=== PATIENT | male | born 1940 | race Caucasian/White ===

== ENCOUNTER 2024-03-11 16:01 | Inpatient (IN) | payer OTHER ==
[~2024-03-11] VITALS: Ht 170.2 cm; Wt 65.5 kg
[2024-03-11 17:16] LABS: BASOPHILS ABSOLUTE AUTO 0.07 K/mm3 (0.00-0.23); BASOPHILS PERCENT AUTO 1 % (0-2); EOSINOPHILS ABSOLUTE AUTO 0.27 K/mm3 (0.00-0.68); EOSINOPHILS PERCENT AUTO 3 % (0-6); Hematocrit 33.4 % (37.0-53.0); Hemoglobin 11.6 g/dL (13.5-17.5); IMMATURE GRAN ABSOLUTE AUTO 0.02 K/mm3 (0.00-0.10); IMMATURE GRAN PERCENT AUTO 0 % (0-1); LYMPHOCYTES ABSOLUTE AUTO 1.63 K/mm3 (0.84-5.20); LYMPHOCYTES PERCENT AUTO 20 % (21-46); MONOCYTES PERCENT AUTO 12 % (4-13); Mean Corpuscular HGB 31.1 pg (26.0-34.0); Mean Corpuscular HGB Conc 34.7 g/dL (31.5-36.5); Mean Corpuscular Volume 90 fL (80-100); Mean Platelet Volume 10.1 fL (9.1-12.4); NEUTROPHILS ABSOLUTE AUTO 5.39 K/mm3 (1.96-9.15); NEUTROPHILS PERCENT AUTO 64 % (41-73); Platelet Count 216 K/mm3 (150-400); RDW Coefficient Variation 13.2 % (11.7-14.2); RDW Standard Deviation 43.6 fL (35.1-46.3); Red Blood Cell Count 3.73 M/mm3 (4.30-5.90); White Blood Cell Count 8.38 K/mm3 (4.00-11.30)
[2024-03-11 17:31] LABS: International Normalized Ratio 0.96; Prothrombin Time Results 10.3 Sec (9.7-11.5)
[2024-03-11 18:27] LABS: Free Thyroxine 0.63 ng/dL (0.70-1.60); Thyroid Stimulating Hormone 11.7 uIU/mL (0.360-4.800)
[2024-03-11 18:28] LABS: Bun/Creatinine Ratio 17.5 (12.0-20.0); Calcium, Blood 8.2 mg/dL (8.5-10.1); Creatinine, Blood 0.74 mg/dL (0.60-1.20); Potassium, Blood 4.6 mmol/L (3.5-5.5)
[2024-03-11] MEDS ORDERED: FLU VACC TS2024-25(6MOS UP)/PF 45 MCG/0.5 ML SYRINGE IM SCH (20:15)
[2024-03-11] MEDS ORDERED: Ipratropium/Albuterol SulF 2.5-0.5MG/3 ML Amp INH SCH (20:15)
[2024-03-11] MEDS ORDERED: FentaNYL Citrate 50 MCG/ML 2 ML Injection IV PRN (20:20)
[2024-03-11] MEDS ORDERED: Albuterol 2.5 MG/3 ML VIAL INH PRN (20:20)
[2024-03-11] MEDS ORDERED: NS 1,000 ML IV SCH ×2 (20:20→20:25)
[2024-03-11] MEDS ORDERED: Ondansetron HCl 2 MG / ML 2ML Vial IV PRN (20:20)
[2024-03-11] MEDS ORDERED: Acetaminophen 325 MG TABLET PO PRN (20:20)
[2024-03-11] MEDS ORDERED: OxyCODONE HCL 5 MG TAB PO PRN (20:20)
[2024-03-11 20:49] LABS: Source, Urine Clean Catch
[2024-03-11 20:52] LABS: Bilirubin, Urine Neg (Neg); Blood, Urine 1+ (Neg); Glucose Qualitative, Urine Neg (Neg); Ketones, Urine Neg (Neg); Leukocyte Esterase, Urine 3+ (Neg); Nitrite, Urine Pos (Neg); Protein, Urine 2+ (Neg); Urobilinogen, Urine NORM (Normal)
[2024-03-11] MEDS ORDERED: NS 1,000 ML IV ONE (20:58)
[2024-03-11] MEDS ORDERED: Azithromycin 500 MG in NS 250 ML IV SCH (21:00)
[2024-03-11] MEDS ORDERED: FentaNYL Citrate 50 MCG/ML 2 ML Injection IV ONE (21:00)
[2024-03-11] MEDS ORDERED: NS 500 ML IV ONE (21:00)
[2024-03-11 21:06] LABS: Appearance, Urine Hazy (Clear); Color, Urine Pale Yellow (P-Yellow)
[2024-03-11 21:07] LABS: Bacteria Many /hpf; Mucus Light (0-Heavy); Squamous Epithelial Cells Rare /hpf (Few); White Blood Cells, Urine 25-50 /hpf (0-5)
[2024-03-11 21:49] VITALS: BP 127/74
[2024-03-11] MEDS ORDERED: FOLI1 PO (21:51)
[2024-03-11] MEDS ORDERED: POTASSIUM GLU2.5 MEQ (21:51)
[2024-03-11] MEDS ORDERED: NAPR500 (21:52)
[2024-03-11] MEDS ORDERED: ERGO400 (21:52)
[2024-03-11] MEDS ORDERED: Lisinopril2.5 MG PO (21:53)
[2024-03-11] MEDS ORDERED: OMEP20ER PO (21:53)
[2024-03-11] MEDS ORDERED: PHENY100ER PO (21:54)
[2024-03-11] MEDS ORDERED: FINA5 PO (21:54)
[2024-03-11] MEDS ORDERED: LEVSOD150 PO (21:55)
--- NOTE | 2024-03-11 22:00 | NUR ---
ARRIVAL TO SURGICAL UNIT ROOM 215 FROM ER. PT ARRIVED VIA GURNEY TO ROOM AT 2138. PT TRANSFERED VIA SLIDER SHEET. PT REPORTED PAIN WITH MOVEMENT. PT A/O X4. ORIENTED TO ROOM AND CALL LIGHT. PT REPORTED WALLET WAS SENT HOME WITH EX DOWN IN ER. CALL LIGHT IN REACH.
[2024-03-11] MEDS ORDERED: CefTRIAXone Sodium 1,000 MG in NS 100 ML IV SCH (22:30)
[2024-03-11] MEDS ORDERED: NS 250 ML IV PRN (22:50)
[2024-03-12 04:26] VITALS: BP 122/74
[2024-03-12 04:38] LABS: Hematocrit 32.9 % (37.0-53.0); Hemoglobin 11.2 g/dL (13.5-17.5); Mean Corpuscular HGB 30.7 pg (26.0-34.0); Mean Corpuscular Volume 90 fL (80-100); Mean Platelet Volume 10.5 fL (9.1-12.4); Platelet Count 222 K/mm3 (150-400); RDW Coefficient Variation 13.2 % (11.7-14.2); RDW Standard Deviation 43.9 fL (35.1-46.3); Red Blood Cell Count 3.65 M/mm3 (4.30-5.90)
[2024-03-12 04:54] LABS: Bun/Creatinine Ratio 18.8 (12.0-20.0); Calcium, Blood 8.2 mg/dL (8.5-10.1); Creatinine, Blood 0.69 mg/dL (0.60-1.20); International Normalized Ratio 0.96; Magnesium, Blood 1.9 mg/dL (1.6-2.4); Potassium, Blood 4.5 mmol/L (3.5-5.5); Prothrombin Time Results 10.3 Sec (9.7-11.5)
--- NOTE | 2024-03-12 05:55 | NUR ---
SHIFT SUMMARY NOC. PT ADMIT FOR LEFT FEMUR FX. PT A/O X4. PT REPORTS PAIN INCREASES WITH MOVEMENT. PT MEDICATED FOR PAIN WITH ORAL OXY. PT HAS SUPRAPUBIC CATH, DECLINED TO HAVE CHANGED, SAMPLE SENT BY ER AND NEW BAG PLACED. PT VOIDING URINE VIA SECURED CATH. PT NPO SINCE 0000, ASIDE FOR SIP OF WATER FOR OXY AND DILANTIN. PT REFUSED SCDS, EDUCATION PROVIDED. PT ON 2L VIA N/C. BED IN LOWEST POSITION, CALL LIGHT IN REACH.
[2024-03-12] MEDS ORDERED: Omeprazole 20 MG CapCR PO SCH (06:00)
[2024-03-12] MEDS ORDERED: Levothyroxine Sodium 0.125 MG Tab PO SCH (06:00)
[2024-03-12 07:00] VITALS: BP 125/71
[2024-03-12] MEDS ORDERED: Polyethylene Glycol 3350 17 gm PO PRN (08:05)
[2024-03-12] MEDS ORDERED: Lactobacil 2-S.Thermo-Bifido 1 1 Cap PO SCH (09:00)
[2024-03-12] MEDS ORDERED: Lisinopril 5 MG Tab PO SCH (09:00)
[2024-03-12] MEDS ORDERED: Cholecalciferol 1000 Unit Tablet (=25MCG) PO SCH (09:00)
[2024-03-12] MEDS ORDERED: Finasteride 5 MG Tab PO SCH (09:00)
[2024-03-12 14:45] VITALS: BP 87/50
[2024-03-12 15:22] VITALS: BP 99/56
--- NOTE | 2024-03-12 16:26 | NUR ---
SHIFT SUMMARY PT WAS ADMITTED EARLIER THIS MORNING AFTER BEING AN ED HOLD OVER NIGHT. PT INITIALLY KEPT NPO WHILE AWAITING MRI AND XRAY RESULTS THIS AFTERNOON. PER ORTHO PROVIDER, PT WILL NEED SURGERY TOMORROW FOR L HIP REPAIR. PT NPO AFTER MID-NIGHT. MEDICATED FOR PAIN. FAMILY/FRIENDS AT BEDSIDE VISITING WITH PT. NO ISSUES NOTED.
--- NOTE | 2024-03-12 16:34 | NUR ---
SHIFT SUMMARY PT NPO THIS MORNING UNTIL MRI/XRAY RESULTS BACK. PT ABLE TO EAT LUNCH AND WILL BE NPO AFTER MID-NIGHT. PT MEDICATED FOR PAIN. MOVES IN BED INDEPENDENTLY. MULTIPLE VISITORS DURING SHIFT AND PT REMAINS IN GOOD SPIRITS. CARE COORDINATION MAKING PLANS FOR DISCHARGE. PLAN TO HAVE SURGERY IN MORNING TOMORROW. NO ISSUES NOTED. SIDE RAILS UP AND CALL LIGHT IN REACH.
[2024-03-12] MEDS ORDERED: Tranexamic Acid 100 ML IV SCH (19:50)
[2024-03-12] MEDS ORDERED: CeFAZolin Sodium 2,000 MG in NS 100 ML IV SCH (19:50)
[2024-03-12 20:20] VITALS: BP 96/47
[2024-03-12] MEDS ORDERED: MethylPREDNISolone Sod Succ 125 MG Vial IV SCH ×2 (21:00)
[2024-03-12] MEDS ORDERED: Docusate Sodium/Senna 1 Tab PO SCH (21:00)
[2024-03-12 23:40] VITALS: BP 108/58
[2024-03-13] VITALS (25 sets, daily range): BP systolic 84–128; BP diastolic 52–90
[2024-03-13 05:11] LABS: Hematocrit 31.4 % (37.0-53.0); Hemoglobin 10.7 g/dL (13.5-17.5); Mean Corpuscular HGB Conc 34.1 g/dL (31.5-36.5); Mean Corpuscular Volume 91 fL (80-100); Mean Platelet Volume 10.5 fL (9.1-12.4); Platelet Count 230 K/mm3 (150-400); RDW Coefficient Variation 13.4 % (11.7-14.2); Red Blood Cell Count 3.45 M/mm3 (4.30-5.90); White Blood Cell Count 9.46 K/mm3 (4.00-11.30)
[2024-03-13 05:30] LABS: Albumin, Blood 2.9 g/dL (3.4-5.0); Anion Gap 10 mmol/L (3-11); Blood Urea Nitrogen 16 mg/dL (8-24); Bun/Creatinine Ratio 21.1 (12.0-20.0); CO2, Blood 26 mmol/L (21-32); Calcium, Blood 8.1 mg/dL (8.5-10.1); Chloride, Blood 99 mmol/L (98-108); Creatinine, Blood 0.76 mg/dL (0.60-1.20); Glomerular Filtration Rate 89 (60-); Glucose, Blood 116 mg/dL (70-99); Phosphorus, Blood 3.9 mg/dL (2.5-4.9); Potassium, Blood 4.7 mmol/L (3.5-5.5); Sodium, Blood 130 mmol/L (136-145)
--- NOTE | 2024-03-13 07:52 | NUR ---
SHIFT SUMMARY NOC. PT ADMITTED FOR L FEMUR FX POST GLF. PT A/O X4. PT'S PAIN CONTROLLED WITH ORALS. PT NPO SINCE 0000 ASIDE FROM PAIN MEDICATION AND DILANTIN. SUPRAPUBIC CATH PATENT AND DRAINING. PT REFUSING SCDS. PT PULLED IV ACCESS LAST NIGHT, UPDATED DAY SHIFT RN. PT ON N/C AND MAINTAINING SATS. BEIN LOWEST POSITION CALL LIGHT IN REACH.
--- NOTE | 2024-03-13 10:36 | NUR ---
PT TAKEN TO OR AT THIS TIME.
[2024-03-13] MEDS ORDERED: Lactated Ringer's 1,000 ML IV SCH (10:45)
[2024-03-13] MEDS ORDERED: Lidocaine HCl 2% 20 ML MDV ONE (10:56)
[2024-03-13] MEDS ORDERED: FentaNYL Citrate 50 MCG/ML 2 ML Injection ONE ×2 (10:56→12:20)
[2024-03-13] MEDS ORDERED: propofoL 20 ML IV ONE (10:56)
[2024-03-13] MEDS ORDERED: Albuterol 2.5 MG/3 ML VIAL ONE (12:58)
--- NOTE | 2024-03-13 15:01 | NUR ---
PT ARRIVED FROM PACU AT APPROXIMATELY 1330. PT ALERT/ORIENTED UPON ARRIVAL. PT RATES PAIN AT 8/10, OXY AND TYLENOL GIVEN FOR PAIN. DRESSING TO L HIP IN PLACE, PER CIGARETTE TIPPERJUANCHO HILARIO NO CHANGE IN APPEARANCE. ICE APPLIED TO L HIP. FAMILY AT BEDSIDE FOR SUPPORT.
--- NOTE | 2024-03-13 18:39 | NUR ---
SHIFT SUMMARY PT IS POD#0 FROM L HIP REPAIR. PAIN HAS BEEN MANAGED WITH TYLENOL AND OXYCODONE. PT HAD SOME POST OP BLEEDING IN PACU BUT RESOLVED PRIOR TO ARRIVAL TO THE UNIT. L THIGH REMAINS SOFT, MINIMAL SWELLING PRESENT. PT GOT OOB AND WORKED WITH PHYSICAL THERAPY. PT'S SBP DROPPED INTO THE 80'S. PT RECOVERED WITH REST AND BP IMPROVED WITHOUT INTERVENTION. PT ON IV FLUIDS. PT TOLERATING PO. PT USES CALL LIGHT APPROPRIATELY.
[2024-03-13] MEDS ORDERED: CeFAZolin Sodium 2,000 MG in NS 100 ML IV SCH (19:00)
[2024-03-13 20:21] LABS: Hemoglobin 10.1 g/dL (13.5-17.5); Mean Corpuscular HGB 30.9 pg (26.0-34.0); Mean Corpuscular HGB Conc 33.7 g/dL (31.5-36.5); Mean Corpuscular Volume 92 fL (80-100); Mean Platelet Volume 10.1 fL (9.1-12.4); Platelet Count 216 K/mm3 (150-400); RDW Coefficient Variation 13.6 % (11.7-14.2); RDW Standard Deviation 45.9 fL (35.1-46.3); Red Blood Cell Count 3.27 M/mm3 (4.30-5.90); White Blood Cell Count 9.73 K/mm3 (4.00-11.30)
[2024-03-13] MEDS ORDERED: Docusate Sodium 100 MG Cap PO SCH (21:00)
[2024-03-14 02:59] VITALS: BP 104/66
--- NOTE | 2024-03-14 05:01 | NUR ---
SHIFT SUMMARY NOC. PT POD 1 FOR LEFT HIP NAILING. PT A/O X4. PT'S PAIN CONTROLLED WITH ORAL OXY AND TYLENOL, MEDICATED THIS SHIFT WITH REPORTED RELIEF. BP'S SOFT AT START OF SHIFT, PT ASSYMPTOMATIC, SIZE WORKER CALLED TO NOTIFY, LABS DRAWN, NO NEW ORDERS POST LABS. SUPRAPUBIC CATH PATENT AND DRAINING TO GRAVITY. PT ON N/C TO MAINTAIN SATS ABOVE 90%. BED IN LOWEST POSITION, CALL LIGHT IN REACH.
[2024-03-14 05:27] LABS: Hematocrit 30.7 % (37.0-53.0); Hemoglobin 10.2 g/dL (13.5-17.5); Mean Corpuscular HGB 30.9 pg (26.0-34.0); Mean Corpuscular HGB Conc 33.2 g/dL (31.5-36.5); Mean Corpuscular Volume 93 fL (80-100); Mean Platelet Volume 10.6 fL (9.1-12.4); Platelet Count 229 K/mm3 (150-400); RDW Coefficient Variation 13.7 % (11.7-14.2); RDW Standard Deviation 46.7 fL (35.1-46.3); White Blood Cell Count 8.85 K/mm3 (4.00-11.30)
[2024-03-14 05:59] LABS: Creatinine, Blood 0.71 mg/dL (0.60-1.20); Potassium, Blood 4.1 mmol/L (3.5-5.5)
[2024-03-14 07:07] VITALS: BP 97/72
[2024-03-14] MEDS ORDERED: PredniSONE 20 MG Tab PO SCH (09:00)
[2024-03-14] MEDS ORDERED: Enoxaparin 40 MG/0.4 ML SYR SC SCH (09:00)
[2024-03-14] MEDS ORDERED: Lisinopril 5 MG Tab PO SCH (09:00)
[2024-03-14 09:31] VITALS: BP 108/63
[2024-03-14] MEDS ORDERED: PRED20 PO (13:41)
[2024-03-14] MEDS ORDERED: ENOX40I SC (13:41)
[2024-03-14] MEDS ORDERED: OXAYDO5 M1 PO (13:43)
--- NOTE | 2024-03-14 15:03 | NUR ---
DISHCARGE SUMMARY PT ALERT AND ORIENTED. SURGEON TO BEDSIDE ASSESSING PT INCISION PRIOR TO DISCHARGE. REVIEWED DISCHARGE INSTRUCTIONS WITH PT AND FAMILY MEMBER. PT DENIED HAVING ANY QUESTIONS OR CONCERNS. IV REMOVED BY HOUSEKEEPING SUPERVISOR. PT LEFT VIA WHEELCHIAR AT 1415.
== END 2024-03-14 14:26 | disposition home or self-care (01) | DRG 481 ==
LOC: ER 16:01 → EDSEX 16:01 → EDBD 16:01 → ERHOLD 20:13 → SURS 20:13
PROVIDERS: Emergency Medicine; Internal Medicine; Nurse Practitioner Acute Care; Orthopaedic Surgery; ADMIT Internal Medicine
PROC: 0QS706Z Reposition Left Upper Femur with Intramedullary Internal Fixation Device, Open Approach (ICD-10-PCS; principal; 2024-03-13 10:30)
DX: S72.112A Displaced fracture of greater trochanter of left femur, initial encounter for closed fracture (principal); E87.1 Hypo-osmolality and hyponatremia; J96.11 Chronic respiratory failure with hypoxia; J44.1 Chronic obstructive pulmonary disease with (acute) exacerbation; I10 Essential (primary) hypertension; E03.9 Hypothyroidism, unspecified; R33.9 Retention of urine, unspecified; Z99.81 Dependence on supplemental oxygen; Z91.040 Latex allergy status; Z87.891 Personal history of nicotine dependence; W18.30XA Fall on same level, unspecified, initial encounter; K21.9 Gastro-esophageal reflux disease without esophagitis
CPT/HCPCS: 36415; 70450; 71045; 72125; 73502; 73721; 80048; 80069; 81001; 82607; 83605; 83735; 83930; 83935; 84295; 84300; 84439; 84443; 85025; 85027; 85610; 85730; 93005; 93010; 94640; 94664; 94760; 94762; 97116; 97161; 97530; 99285-25; A9270; C1713; C1769; J0456; J0690; J0696; J1650; J2704; J2919; J3010; J7030; J7050; J7120; J7512

== ENCOUNTER 2024-08-24 06:25 | Inpatient (IN) | payer OTHER ==
[2024-08-24] VITALS (29 sets, daily range): BP systolic 65–140; BP diastolic 43–119
[~2024-08-24] VITALS: Ht 167.6 cm; Wt 78.3 kg
[~2024-08-24 06:25] MED LIST: ENOX40I SC; ERGO400; FINA5 PO; FOLI1 PO; LEVSOD150 PO; Lisinopril2.5 MG PO; NAPR500; OMEP20ER PO; OXAYDO5 M1 PO; PHENY100ER PO; POTASSIUM GLU2.5 MEQ; PRED20 PO
[2024-08-24] MEDS ORDERED: NS 2,000 ML IV ONE (06:32)
[2024-08-24] MEDS ORDERED: NS 1,000 ML IV SCH (06:35)
[2024-08-24] MEDS ORDERED: CefTRIAXone Sodium 1,000 MG in NS 100 ML IV ONE (06:35)
[2024-08-24 06:51] LABS: Base Excess Venous -16.9 mmol/L; Bicarbonate Venous 11.7 mmol/L (24.0-30.0); Hematocrit 33.4 % (37.0-53.0); Hemoglobin 10.4 g/dL (13.5-17.5); Mean Corpuscular HGB 28.7 pg (26.0-34.0); Mean Corpuscular HGB Conc 31.1 g/dL (31.5-36.5); Mean Corpuscular Volume 92 fL (80-100); Mean Platelet Volume 11.7 fL (9.1-12.4); Platelet Count 148 K/mm3 (150-400); RDW Coefficient Variation 15.7 % (11.7-14.2); RDW Standard Deviation 53.5 fL (35.1-46.3); Red Blood Cell Count 3.62 M/mm3 (4.30-5.90)
[2024-08-24] MEDS ORDERED: Sodium Bicarb 8.4% Inj 150 MEQ in Dextrose 5% 1,000 ML IV SCH ×2 (07:00→14:20)
[2024-08-24 07:09] LABS: Albumin, Blood 2.6 g/dL (3.4-5.0); Albumin/Globulin Ratio 0.9 (0.8-1.8); Bilirubin, Total 3.1 mg/dL (0.1-1.0); Bun/Creatinine Ratio 19.5 (12.0-20.0); Calcium, Blood 8.4 mg/dL (8.5-10.1); Creatinine, Blood 2.05 mg/dL (0.60-1.20); Magnesium, Blood 2.8 mg/dL (1.6-2.4); Phosphorus, Blood 7.9 mg/dL (2.5-4.9); Potassium, Blood 4.6 mmol/L (3.5-5.5); Total Protein, Blood 5.6 g/dL (6.4-8.2)
[2024-08-24 08:01] LABS: BAND PERCENT MAN 33 % (0-8); BASOPHILS PERCENT MAN 0 % (0-2); EOSINOPHILS PERCENT MAN 0 % (0-6); LYMPHOCYTES ABSOLUTE MAN 0.42 K/mm3 (0.84-5.20); LYMPHOCYTES PERCENT MAN 3 % (21-46); METAMYELOCYTE ABSOLUTE MAN 0.42 K/mm3 (0.00-0.00); METAMYELOCYTE PERCENT MAN 3 % (0-0); MONOCYTES PERCENT MAN 0 % (4-13); MYELOCYTE ABSOLUTE MAN 0.14 K/mm3 (0.00-0.00); MYELOCYTE PERCENT MAN 1 % (0-0); NEUTROPHILS ABSOLUTE MAN 13.29 K/mm3 (1.96-9.15); SEG NEUTROPHILS PERCENT MAN 60 % (41-73); TOTAL CELLS COUNTED 100
[2024-08-24] MEDS ORDERED: Piperacillin/Tazobactam Sod 3.375 GM in NS 100 ML IV ONE (08:55)
[2024-08-24] MEDS ORDERED: TAMS.4ER PO (09:37)
[2024-08-24] MEDS ORDERED: POTCHL20ER PO (09:38)
[2024-08-24] MEDS ORDERED: FLU VACC TS2024-25(6MOS UP)/PF 45 MCG/0.5 ML SYRINGE IM SCH (09:40)
[2024-08-24] MEDS ORDERED: Lactated Ringer's 1,000 ML IV SCH (09:40)
[2024-08-24 10:38] LABS: Base Excess Venous -11.4 mmol/L; Bicarbonate Venous 15.6 mmol/L (24.0-30.0); PCO2 Venous 50.7 mmHg (38-42); PO2 Venous 85.1 mmHg (38-42); pH Blood Venous 7.15 (7.34-7.37)
[2024-08-24] MEDS ORDERED: HYDROmorphone HCl/Pf 1MG SYR IV PRN (11:00)
[2024-08-24 11:09] LABS: pH Blood Venous 6.99 (7.34-7.37)
[2024-08-24] MEDS ORDERED: Phenylephrine HCl 100 MCG/ML-NS 10MLSYR (1MG/10ML) IV ONE (12:34)
[2024-08-24] MEDS ORDERED: FentaNYL Citrate 50 MCG/ML 2 ML Injection IV PRN (12:35)
[2024-08-24] MEDS ORDERED: Vancomycin HCL 1,250 MG in NS 250 ML IV ONE (12:40)
[2024-08-24] MEDS ORDERED: NS 100 ML BAG IV PRN (12:55)
[2024-08-24] MEDS ORDERED: MetroNIDAZOLE 500MG/NS 100 ml 100 ML IV SCH (13:00)
[2024-08-24 13:34] LABS: Bicarbonate Venous 17.9 mmol/L (24.0-30.0); PCO2 Venous 55.4 mmHg (38-42)
[2024-08-24 13:35] LABS: pH Blood Venous 7.18 (7.34-7.37)
[2024-08-24 13:37] LABS: Mean Corpuscular HGB 28.9 pg (26.0-34.0); Mean Corpuscular HGB Conc 32.4 g/dL (31.5-36.5); Mean Corpuscular Volume 90 fL (80-100); Mean Platelet Volume 11.4 fL (9.1-12.4); Platelet Count 131 K/mm3 (150-400); RDW Coefficient Variation 15.9 % (11.7-14.2); RDW Standard Deviation 51.8 fL (35.1-46.3)
[2024-08-24 13:54] LABS: Albumin, Blood 2.4 g/dL (3.4-5.0); Albumin/Globulin Ratio 0.8 (0.8-1.8); Bilirubin, Total 3.5 mg/dL (0.1-1.0); Bun/Creatinine Ratio 20.7 (12.0-20.0); Calcium, Blood 7.4 mg/dL (8.5-10.1); Creatinine, Blood 2.03 mg/dL (0.60-1.20); Globulin, Blood 2.9 g/dL (2.2-4.0); Magnesium, Blood 2.2 mg/dL (1.6-2.4); Potassium, Blood 4.2 mmol/L (3.5-5.5); Total Protein, Blood 5.3 g/dL (6.4-8.2)
[2024-08-24 13:55] LABS: BAND PERCENT MAN 13 % (0-8); BASOPHILS PERCENT MAN 0 % (0-2); EOSINOPHILS PERCENT MAN 0 % (0-6); LYMPHOCYTES ABSOLUTE MAN 0.71 K/mm3 (0.84-5.20); LYMPHOCYTES PERCENT MAN 9 % (21-46); MONOCYTES ABSOLUTE MAN 0.23 K/mm3 (0.16-1.47); MONOCYTES PERCENT MAN 3 % (4-13); NEUTROPHILS ABSOLUTE MAN 6.95 K/mm3 (1.96-9.15); SEG NEUTROPHILS PERCENT MAN 75 % (41-73); TOTAL CELLS COUNTED 100
[2024-08-24] MEDS ORDERED: NS 250 ML IV PRN (14:05)
[2024-08-24] MEDS ORDERED: Calcium Chloride 10% 1,000 MG in NS 50 ML IV SCH (14:15)
[2024-08-24] MEDS ORDERED: Ipratropium/Albuterol SulF 2.5-0.5MG/3 ML Amp INH SCH (14:55)
[2024-08-24] MEDS ORDERED: dexmedeTOMIDine 100 ML IV PRN (15:20)
[2024-08-24] MEDS ORDERED: Vasopressin 20 UNITS in NS 100 ML IV SCH (15:20)
[2024-08-24 15:40] LABS: Appearance, Urine Cloudy (Clear); Blood, Urine 5+ (Neg); Color, Urine Amber (P-Yellow); Glucose Qualitative, Urine Neg (Neg); Ketones, Urine 1+ (Neg); Leukocyte Esterase, Urine 3+ (Neg); Nitrite, Urine Pos (Neg); Protein, Urine 3+ (Neg); Urobilinogen, Urine 3+ (Normal)
[2024-08-24 15:53] LABS: Bilirubin, Urine 2+ (Neg)
[2024-08-24 15:55] LABS: Amorphous Light (0-Heavy); Bacteria Many /hpf; Hyaline Casts 0-2 /lpf (0-2); Squamous Epithelial Cells Rare /hpf (Few)
[2024-08-24] MEDS ORDERED: Piperacillin/Tazobactam Sod 3.375 GM in NS 100 ML IV SCH (16:00)
[2024-08-24] MEDS ORDERED: FentaNYL Citrate 50 MCG/ML 5 ML Injection ONE (18:04)
[2024-08-24] MEDS ORDERED: propofoL 0 ML IV ONE (18:04)
--- NOTE | 2024-08-24 18:12 | NUR ---
STARTED WITH ABD PAIN AT HOME AND CALLED EMS. UNRESPONSIVE WITH EMS, TO ED,TO ICU. PT CONFUSED TO TIME UPON ARRIVAL TO ICU ON NONREBREATHER. PT SWITCHED TO BIPAP. LEVOPHED AND VASOPRESSIN STARTED FOR BP. PRECEDEX STARTED TO HELP WITH DISCOMFORT OF BIPAP. BICARB CONCENTRATION CHANGED, MIVF AND ABX RUNNING. PT LETHARGIC WITH THE PRECEDEX BUT WAKES WITH VOICE. LUNGS SOUNG COARSE AND RHONCHOROUS BILATERALLY, DIMINISHED IN THE BASES. SATS HOLDING ON THE BIPAP. NST CARDIAC RHYTHM.
[2024-08-24] MEDS ORDERED: SuccINYLCHOLINE Chloride 100 MG/5 ML 5MLSYR ONE (18:47)
[2024-08-24] MEDS ORDERED: Rocuronium Bromide 10 MG/ML 5ML Injection IV ONE (18:47)
[2024-08-24] MEDS ORDERED: Phenylephrine HCl 100 MCG/ML-NS 10MLSYR (1MG/10ML) ONE (18:47)
--- NOTE | 2024-08-24 19:20 | NUR ---
PALLIATIVE CARE INITIAL VISIT: MET WITH FAMILY IN ROOM. PT IS CURRENTLY ON BIPAP AND APPEARS TO BE SLEEPING. RN IN ROOM WITH PT. UPDATE FAMILY ON PT CURRENT STATUS. DISCUSS POLST/AD WITH FAMILY. CHUY HAS PHOTO COPY OF AD ON HER PHONE. ASSISTED HER WITH EMAILING AD TO MY WORK EMAIL. AD IS ONLY A PARTIAL COPY AND DOES NOT HAVE SIGNATURE PAGE ATTACHED. APPEARS PT WOULD WANT LIFE SUSTAINING MEASURES UNLESS IN A PERMANENT VEGATATIVE STATE, IN SEVERE PAIN AND SUFFERING THAT CANNOT BE RELIEVED, OR MAY SOON DESPITE LIFE SUSTAINING TREATMENT. FAMILY WANT PT TO REMAIN FULL CODE AT THIS TIME. PRASANTH GAVE CONTACT INFO: [phone].
[2024-08-24] MEDS ORDERED: Vasopressin 20 UNITS/ML 1ML Vial ONE (19:44)
[2024-08-24] MEDS ORDERED: Midazolam HCl 1MG / ML 2ML Vial ONE (20:02)
[2024-08-24 20:07] LABS: Hematocrit 34.1 % (37.0-53.0); Hemoglobin 10.8 g/dL (13.5-17.5); Mean Corpuscular HGB 28.4 pg (26.0-34.0); Mean Corpuscular HGB Conc 31.7 g/dL (31.5-36.5); Mean Corpuscular Volume 90 fL (80-100); Mean Platelet Volume 12.2 fL (9.1-12.4); Platelet Count 88 K/mm3 (150-400); RDW Coefficient Variation 15.9 % (11.7-14.2); RDW Standard Deviation 52.6 fL (35.1-46.3); White Blood Cell Count 6.88 K/mm3 (4.00-11.30)
[2024-08-24 20:21] LABS: Bun/Creatinine Ratio 21.2 (12.0-20.0); Calcium, Blood 8.5 mg/dL (8.5-10.1); Creatinine, Blood 2.08 mg/dL (0.60-1.20); Magnesium, Blood 2.2 mg/dL (1.6-2.4); Phosphorus, Blood 6.9 mg/dL (2.5-4.9); Potassium, Blood 4.9 mmol/L (3.5-5.5)
[2024-08-24 20:38] LABS: BAND PERCENT MAN 27 % (0-8); BASOPHILS PERCENT MAN 0 % (0-2); EOSINOPHILS PERCENT MAN 0 % (0-6); LYMPHOCYTES ABSOLUTE MAN 0.55 K/mm3 (0.84-5.20); LYMPHOCYTES PERCENT MAN 8 % (21-46); MONOCYTES ABSOLUTE MAN 0.34 K/mm3 (0.16-1.47); MONOCYTES PERCENT MAN 5 % (4-13); NEUTROPHILS ABSOLUTE MAN 5.98 K/mm3 (1.96-9.15); SEG NEUTROPHILS PERCENT MAN 60 % (41-73); TOTAL CELLS COUNTED 100
[2024-08-24 23:20] LABS: PCO2 Arterial 50.6 mmHg (35-45); PO2 Arterial 93.2 mmHg (80-100)
[2024-08-24 23:21] LABS: pH Blood Arterial 7.22 (7.35-7.45)
[2024-08-25] VITALS (26 sets, daily range): BP systolic 58–146; BP diastolic 34–120
[2024-08-25 02:28] LABS: PCO2 Arterial 53.6 mmHg (35-45); PO2 Arterial 117 mmHg (80-100)
[2024-08-25 02:29] LABS: pH Blood Arterial 7.21 (7.35-7.45)
--- NOTE | 2024-08-25 02:40 | NUR ---
NURSING NOTE: AT AROUND 2300 ON 08/24, DR JANG WAS ASKED TO COME TO BEDSIDE BY POLICE CAPTAIN PRECINCT BECAUSE OF TACHYPNIC BREATHING, PT WAS DIAPHORETIC, AND AN O2 SAT UNABLE TO BE OBTAINED. AN ABG WAS ORDERED AND CRITICAL RESULTS WERE SHOWN TO DR JANG AT BEDSIDE. INTUBATION WAS DISCUSSED, BUT FOR NOW, THE PLAN IS TO TREND ABGs AND REASSESS LATER. SPOKE WITH PT SON AT BEDSIDE.
[2024-08-25 04:20] LABS: Hematocrit 31.6 % (37.0-53.0); Hemoglobin 10.4 g/dL (13.5-17.5); Mean Corpuscular HGB 29.1 pg (26.0-34.0); Mean Corpuscular HGB Conc 32.9 g/dL (31.5-36.5); Mean Corpuscular Volume 89 fL (80-100); Platelet Count 53 K/mm3 (150-400); RDW Standard Deviation 52.6 fL (35.1-46.3); Red Blood Cell Count 3.57 M/mm3 (4.30-5.90); White Blood Cell Count 7.18 K/mm3 (4.00-11.30)
[2024-08-25 04:27] LABS: Mean Platelet Volume 13.5 fL (9.1-12.4)
[2024-08-25 04:28] LABS: Base Excess Venous -6.4 mmol/L; Bicarbonate Venous 18.9 mmol/L (24.0-30.0); PCO2 Venous 59.2 mmHg (38-42); pH Blood Venous 7.18 (7.34-7.37)
[2024-08-25 04:40] LABS: Alanine Aminotransfer (ALT/SGP 93 U/L (12-78); Albumin/Globulin Ratio 0.7 (0.8-1.8); Alk Phos 120 U/L (50-136); Anion Gap 19 mmol/L (3-11); Aspartate Aminotrans (AST/SGOT 222 U/L (12-37); Bilirubin, Total 4.2 mg/dL (0.1-1.0); Blood Urea Nitrogen 49 mg/dL (8-24); Bun/Creatinine Ratio 21.8 (12.0-20.0); CO2, Blood 22 mmol/L (21-32); Calcium, Blood 7.6 mg/dL (8.5-10.1); Chloride, Blood 92 mmol/L (98-108); Creatinine, Blood 2.25 mg/dL (0.60-1.20); Globulin, Blood 2.7 g/dL (2.2-4.0); Glomerular Filtration Rate 28 (60-); Glucose, Blood 109 mg/dL (70-99); Phosphorus, Blood 6.5 mg/dL (2.5-4.9); Potassium, Blood 5.3 mmol/L (3.5-5.5); Sodium, Blood 128 mmol/L (136-145); Total Protein, Blood 4.7 g/dL (6.4-8.2); Vancomycin, Random 12.9 ug/mL
[2024-08-25 04:50] LABS: BAND PERCENT MAN 31 % (0-8); BASOPHILS PERCENT MAN 0 % (0-2); EOSINOPHILS PERCENT MAN 0 % (0-6); LYMPHOCYTES ABSOLUTE MAN 0.28 K/mm3 (0.84-5.20); LYMPHOCYTES PERCENT MAN 4 % (21-46); METAMYELOCYTE ABSOLUTE MAN 0.07 K/mm3 (0.00-0.00); METAMYELOCYTE PERCENT MAN 1 % (0-0); MONOCYTES ABSOLUTE MAN 0.35 K/mm3 (0.16-1.47); MONOCYTES PERCENT MAN 5 % (4-13); MYELOCYTE ABSOLUTE MAN 0.21 K/mm3 (0.00-0.00); MYELOCYTE PERCENT MAN 3 % (0-0); NEUTROPHILS ABSOLUTE MAN 6.24 K/mm3 (1.96-9.15); SEG NEUTROPHILS PERCENT MAN 56 % (41-73); TOTAL CELLS COUNTED 100
[2024-08-25] MEDS ORDERED: Vancomycin HCL 1,000 MG in NS 250 ML IV ONE (06:00)
--- NOTE | 2024-08-25 06:20 | NUR ---
END OF SHIFT SUMMARY: THIS PT REMAINS ON LARGE AMOUNTS OF PRESSERS AND 100% ON BIPAP. OVERNIGHT, THE PT HAS BEEN TACHYPNIC AND SLIGHTLY DIAPHORETIC. AFTER TALKING WITH DR JANG, ABGs and VBGs WERE TRENDED TO ASSESS NEED FOR INTUBATION. PT REMAINS ACIDODIC, SEE LAB RESULTS. THIS RN ATTEMPTED TO WEAN PRESSER MEDICATION THROUGHOUT THE NIGHT. SON AT BEDSIDE THROUGHOUT NIGHT. PT REMAINS CONFUSED BUT ALERT TO SELF.
[2024-08-25] MEDS ORDERED: Calcium Chloride 10% 2,000 MG in NS 100 ML IV ONE (08:50)
[2024-08-25] MEDS ORDERED: Heparin Sodium,Porcine 5,000 UNIT/0.5 ML SDV SC SCH (09:00)
[2024-08-25] MEDS ORDERED: Enoxaparin 30 MG/0.3 ML SYR SC SCH (09:00)
--- NOTE | 2024-08-25 09:36 | NUR ---
INTUBATION 0936- BIPAP ALARMING, UPON ENTERING THE ROOM PT NOT PULLING ANY SPONTANEOUS RESPIRATIONS. DR. CAO CALLED INTO THE ROOM AND PT TAKEN OFF BIPAP AND WAS BAGGED W BAG VALVE MASK. 0940- PT POSITIONED FOR INTUBATION AND SMALL AMOUNT OF EMESIS COMING FROM THE PT'S MOUTH WAS SUCTIONED BY RT. 0942- PT INTUBATED BY DR. CAO W 8.0 ET TUBE 24 CM AT PT'S TEETH. 0943- OG TUBE PLACED AND CONNECTED TO LIS. 0944- 50MG PROPOFOL GIVEN PER DR. CAO.
[2024-08-25] MEDS ORDERED: NS 500 ML IV ONE ×2 (09:52→13:44)
[2024-08-25] MEDS ORDERED: propofoL 100 ML IV SCH (10:05)
[2024-08-25] MEDS ORDERED: Phenylephrine HCl in 0.9% NaCl 250 ML IV SCH (10:15)
[2024-08-25 10:17] LABS: PCO2 Arterial 60.2 mmHg (35-45)
[2024-08-25 10:19] LABS: pH Blood Arterial 7.15 (7.35-7.45)
[2024-08-25] MEDS ORDERED: Lactated Ringer's 1,000 ML IV SCH (13:35)
[2024-08-25 14:14] LABS: PCO2 Arterial 45.7 mmHg (35-45)
[2024-08-25 14:17] LABS: pH Blood Arterial 7.19 (7.35-7.45)
[2024-08-25] MEDS ORDERED: Sodium Bicarb 8.4% Inj 150 MEQ in Dextrose 5% 1,000 ML IV SCH ×3 (14:25→20:00)
[2024-08-25] MEDS ORDERED: TPN Consult Notification XX ONE (14:45)
[2024-08-25] MEDS ORDERED: Propofol 10mg/ml 20 ml Vial (Procedural) IV ONE (15:00)
[2024-08-25] MEDS ORDERED: NS 500 ML IV SCH (15:15)
[2024-08-25] MEDS ORDERED: Hydrogen Peroxide 1.5 % Solution MT SCH (16:00)
[2024-08-25 16:19] LABS: Hematocrit 29.7 % (37.0-53.0); Hemoglobin 9.6 g/dL (13.5-17.5); Mean Corpuscular HGB 28.7 pg (26.0-34.0); Mean Corpuscular HGB Conc 32.3 g/dL (31.5-36.5); Mean Corpuscular Volume 89 fL (80-100); RDW Coefficient Variation 16.5 % (11.7-14.2); RDW Standard Deviation 53.6 fL (35.1-46.3); Red Blood Cell Count 3.35 M/mm3 (4.30-5.90); White Blood Cell Count 9.53 K/mm3 (4.00-11.30)
[2024-08-25 16:24] LABS: Mean Platelet Volume 13.7 fL (9.1-12.4)
[2024-08-25 16:25] LABS: Platelet Count 33 K/mm3 (150-400)
[2024-08-25 16:41] LABS: BAND PERCENT MAN 43 % (0-8); BASOPHILS PERCENT MAN 0 % (0-2); EOSINOPHILS PERCENT MAN 0 % (0-6); LYMPHOCYTES ABSOLUTE MAN 0.19 K/mm3 (0.84-5.20); LYMPHOCYTES PERCENT MAN 2 % (21-46); MONOCYTES ABSOLUTE MAN 0.28 K/mm3 (0.16-1.47); MONOCYTES PERCENT MAN 3 % (4-13); NEUTROPHILS ABSOLUTE MAN 9.05 K/mm3 (1.96-9.15); SEG NEUTROPHILS PERCENT MAN 52 % (41-73); TOTAL CELLS COUNTED 100
[2024-08-25 16:47] LABS: Bun/Creatinine Ratio 18.5 (12.0-20.0); Calcium, Blood 8.1 mg/dL (8.5-10.1); Creatinine, Blood 2.71 mg/dL (0.60-1.20); Phosphorus, Blood 7.1 mg/dL (2.5-4.9); Potassium, Blood 5.7 mmol/L (3.5-5.5)
[2024-08-25] MEDS ORDERED: [UNRECOGNIZED DRUG - OTHER] IV SCH (17:00)
[2024-08-25] MEDS ORDERED: Dextrose 50% 50 ML Vial IV ONE (17:05)
[2024-08-25] MEDS ORDERED: Calcium Chloride 10% 1,000 MG in NS 50 ML IV ONE (17:10)
--- NOTE | 2024-08-25 18:10 | NUR ---
2DAY SHIFT SUMMARY PT INTUBATED THIS AM APPROX 0940, SEE PREVIOUS NOTE FOR DETAILS. PT W WORSENING HYPOTENSION ON LEVOPHED AND VASOPRESSIN GTT'S SO PHENYLEPHRINE GTT STARTED. DR. CAO PLACING ARTERIAL LINE THIS SHIFT. PT GIVEN 2L FLUID BOLUS OF LR THIS SHIFT IN ADDITION TO CONTINUOUS FLUID INFUISIONS. PT W ONLY 20ML URINE OUTPUT THIS SHIFT PER SUPRAPUBIC CATHETER. WE HAVE BEEN UNABLE TO OBTAIN A SPO2 READING ON THE PT SO SERIAL ABG'S HAVE BEEN DRAWN TO ASSESS RESPIRATORY STATUS. PT ALERT TO SELF THIS SHIFT AROUSING TO VOICE AND NODDING/SHAKING HIS HEAD TO YES OR NO QUESTIONS. PT REMAINS ON LEVO, VASO AND RUPERTO GTT'S W STABLE MAP >65 DESPITE WIDE PULSE PRESSURE. PT RECIEVING FENTAYL MULTIPLE TIMES THIS SHIFT FOR ABDOMINAL PAIN. PT W WORSENING MOTTLING ON BLE'S AND ABDOMEN THIS SHIFT, ABDOMEN MOTTLING MOSTLY ON R SIDE. 100ML DARK BILE SUCTIONED FROM PT'S OG TUBE WHICH REMAINS ON LIS. PT STARTED ON CPN THIS SHIFT. PT W GLUCOSE OF 62 ON 1600 LABS SO 1 AMP DEXTROSE GIVEN AND DR. CAO AWARE. REPEAT CBG SHHOWING CBG OF 183 AFTER DEXTROSE ADMINISTRATION. WILL REPORT TO ONCOMING RN.
--- NOTE | 2024-08-25 19:00 | NUR ---
ASSUMED CARE OF PT AT 1900 PT RESTING ON BED, OCCASSIONALLY GRIMACING AND RAISES EYEBROWS TO VERBAL/PAINFUL STIMULI. PT NOT FOLLOWING COMMANDS AT THIS TIME. PT SON (PRASANTH) AND EXWIFE (CHUY) AT BEDSIDE. PT HAS A BI-CARB BOLUS RUNNING AT 500ML/HR, QUAD STRENGTH LEVOPHED AT 35MCG/MIN, VASOPRESSIN 0.04 UNITS/MIN, PHENYLEPHRINE 40MCG/MIN, PROPOFOL 35MCG/KG/MIN, NS TKO, AND TPN RUNNING ORDERED. PT INTUBATED W/ 8.0 ETT, 24 @ TEETH. PT LUNGS CLEAR/ WITH CRACKLES AND DIMINISHED BREATH SOUNDS TO LOWER LOBES. CURRENT VENT SETTINGS ACVC: 18/500/10/80%. PT HAS ART LINE, PRESSORS TITRATED TO KEEP MAP>65. CURRENT SYSTOLICS TRENDING IN THE 130S, DIASTOLICS IN THE 40S. PT RHTHYM SINUS TACH RATE OF 100S. PT FINGERS ON BILATERAL UPPER EXTREMITIES ARE CYANOTIC AT THE TIPS W/ DELAYED CAP REFILL. SOME MOTTLING OBSERVED TO R. LATERAL ABDOMEN AND BILAT THIGH. PT HAS SUPRAPUBIC CATH W/ MINIMAL DRAINAGE. PT HAS BILAT AC IVS, BOTH W/ BLOOD RETURN. R. FEM SITE OF CENTRAL LINE C/D/I. L. FEM SITE A-LINE ALSO C/D/I. PT TEMP 99.8 VIA PROBE, ICE PACKS TO AXILLARY AND FAN PLACED ON PT. PLAN OF CARE ONGOING.
[2024-08-25] MEDS ORDERED: Cetylpyridinium Chloride 1 EA MISC MT SCH (20:00)
[2024-08-25] MEDS ORDERED: Lactobacil 2-S.Thermo-Bifido 1 1 Cap PO SCH (21:00)
[2024-08-25] MEDS ORDERED: PHENYTOIN SODIUM IV SCH (21:00)
[2024-08-25] MEDS ORDERED: NS IV SCH (21:00)
[2024-08-26 02:21] VITALS: BP 130/46
[2024-08-26 02:27] VITALS: BP 112/42
[2024-08-26 04:01] LABS: Anion Gap 20 mmol/L (3-11); Blood Urea Nitrogen 56 mg/dL (8-24); Bun/Creatinine Ratio 19.4 (12.0-20.0); CO2, Blood 23 mmol/L (21-32); Calcium, Blood 7.2 mg/dL (8.5-10.1); Chloride, Blood 85 mmol/L (98-108); Creatinine, Blood 2.88 mg/dL (0.60-1.20); Glomerular Filtration Rate 21 (60-); Glucose, Blood 270 mg/dL (70-99); Magnesium, Blood 1.9 mg/dL (1.6-2.4); Phosphorus, Blood 5.6 mg/dL (2.5-4.9); Potassium, Blood 5.3 mmol/L (3.5-5.5); Sodium, Blood 123 mmol/L (136-145); Triglycerides 454 mg/dL (30-160)
[2024-08-26 04:06] LABS: Vancomycin, Random 20.5 ug/mL
[2024-08-26 04:17] VITALS: BP 136/48
[2024-08-26 04:53] LABS: Hematocrit 27.1 % (37.0-53.0); Hemoglobin 9.2 g/dL (13.5-17.5); Mean Corpuscular HGB 29.6 pg (26.0-34.0); Mean Corpuscular HGB Conc 33.9 g/dL (31.5-36.5); Mean Corpuscular Volume 87 fL (80-100); NRBC ABSOLUTE 0.02 K/mm3 (0.00-0.02); NRBC Auto 0.1 /100 WBC (0.0-0.2); RDW Coefficient Variation 16.6 % (11.7-14.2); RDW Standard Deviation 53.1 fL (35.1-46.3); Red Blood Cell Count 3.11 M/mm3 (4.30-5.90)
[2024-08-26 04:58] LABS: Mean Platelet Volume 13.2 fL (9.1-12.4); Platelet Count 21 K/mm3 (150-400)
[2024-08-26 05:30] LABS: BAND PERCENT MAN 31 % (0-8); BASOPHILS PERCENT MAN 0 % (0-2); EOSINOPHILS ABSOLUTE MAN 0.15 K/mm3 (0.00-0.68); EOSINOPHILS PERCENT MAN 1 % (0-6); LYMPHOCYTES ABSOLUTE MAN 0.45 K/mm3 (0.84-5.20); LYMPHOCYTES PERCENT MAN 3 % (21-46); METAMYELOCYTE ABSOLUTE MAN 0.45 K/mm3 (0.00-0.00); METAMYELOCYTE PERCENT MAN 3 % (0-0); MONOCYTES PERCENT MAN 4 % (4-13); MYELOCYTE ABSOLUTE MAN 0.15 K/mm3 (0.00-0.00); MYELOCYTE PERCENT MAN 1 % (0-0); SEG NEUTROPHILS PERCENT MAN 57 % (41-73); TOTAL CELLS COUNTED 100
--- NOTE | 2024-08-26 05:43 | NUR ---
NOC SHIFT SUMMARY NO ACUTE EVENTS OVERNIGHT. PT HAS PROPOFOL RUNNING AT 25MCG/KG/MIN, VASOPRESSIN AT 0.04 UNITS/MIN, NEOSYNEPHRINE 35MCG/MIN, LEVOPHED 30MCG/MIN, BI-CARB AT 150ML/HR, NS TKO, AND CPN @55ML/HR. VENT SETTINGS UNCHANGED DURING SHIFT. PT CURRENTLY IN SINUS RHYTHM RATE OF 90S, SYSTOLIC BP 120-130S, DIASTOLIC PRESSURES IN THE 40S- MEASURED VIA A-LINE. PRESSORS TITRATED TO MAINTAIN MAP>65. NO BM THIS SHIFT. PT OLIGURIC- OUTPUT OF 12ML DURING SHIFT. TMAX OF 99.9- ICE PACKS TO AXILLA AND FAN PLACED AT BEDSIDE W/ GOOD EFFECT. CURRENT TEMP 99.0. FINGERS REMAIN CYANOTIC. SOME MOTTLING OBSERVED TO LATERAL ABDOMEN. PT REQUIRED ONE DOSE OF PRN PAIN MEDICATION DURING SHIFT. PT IN BILAT UPPER WRIST RESTRAINTS. TURNED Q2 HOURS. SON JAYDEN) REMAINED AT BEDSIDE T/O SHIFT. PLAN OF CARE ONGOING.
[2024-08-26] MEDS ORDERED: Pantoprazole Sodium 40 MG Injection IV SCH (06:00)
[2024-08-26 06:16] VITALS: BP 114/41
[2024-08-26 07:51] VITALS: BP 128/48
[2024-08-26 08:39] LABS: PCO2 Arterial 42.8 mmHg (35-45); PO2 Arterial 59.3 mmHg (80-100); pH Blood Arterial 7.34 (7.35-7.45)
[2024-08-26] MEDS ORDERED: Albumin (Human) 12.5gm/250ml 250 ML IV ONE (08:50)
[2024-08-26] MEDS ORDERED: Vancomycin HCL 750 MG in NS 250 ML IV ONE (09:10)
[2024-08-26 10:18] LABS: Albumin, Blood 1.4 g/dL (3.4-5.0); Albumin/Globulin Ratio 0.5 (0.8-1.8); Bilirubin, Total 4.3 mg/dL (0.1-1.0); Bun/Creatinine Ratio 17.8 (12.0-20.0); Calcium, Blood 6.8 mg/dL (8.5-10.1); Creatinine, Blood 2.98 mg/dL (0.60-1.20); Globulin, Blood 2.7 g/dL (2.2-4.0); Potassium, Blood 5.4 mmol/L (3.5-5.5); Total Protein, Blood 4.1 g/dL (6.4-8.2)
[2024-08-26] MEDS ORDERED: TPN Consult Notification XX ONE (11:50)
[2024-08-26 11:58] LABS: International Normalized Ratio 1.32; Prothrombin Time Results 13.8 Sec (9.7-11.5)
[2024-08-26 15:10] LABS: Hematocrit 27.3 % (37.0-53.0); Hemoglobin 9.6 g/dL (13.5-17.5); Mean Corpuscular HGB 29.5 pg (26.0-34.0); Mean Corpuscular HGB Conc 35.2 g/dL (31.5-36.5); Mean Corpuscular Volume 84 fL (80-100); RDW Coefficient Variation 16.3 % (11.7-14.2); RDW Standard Deviation 50.3 fL (35.1-46.3); Red Blood Cell Count 3.25 M/mm3 (4.30-5.90); White Blood Cell Count 15.43 K/mm3 (4.00-11.30)
[2024-08-26 15:18] LABS: Platelet Count 14 K/mm3 (150-400)
[2024-08-26 15:26] LABS: Anion Gap 20 mmol/L (3-11); Blood Urea Nitrogen 56 mg/dL (8-24); CO2, Blood 23 mmol/L (21-32); Calcium, Blood 7.2 mg/dL (8.5-10.1); Chloride, Blood 86 mmol/L (98-108); Creatinine, Blood 3.11 mg/dL (0.60-1.20); Glomerular Filtration Rate 19 (60-); Glucose, Blood 163 mg/dL (70-99); Potassium, Blood 5.8 mmol/L (3.5-5.5); Sodium, Blood 123 mmol/L (136-145); Triglycerides 380 mg/dL (30-160)
[2024-08-26 15:28] LABS: BAND PERCENT MAN 31 % (0-8); BASOPHILS PERCENT MAN 0 % (0-2); EOSINOPHILS PERCENT MAN 2 % (0-6); LYMPHOCYTES ABSOLUTE MAN 0.46 K/mm3 (0.84-5.20); LYMPHOCYTES PERCENT MAN 3 % (21-46); MONOCYTES ABSOLUTE MAN 0.15 K/mm3 (0.16-1.47); MONOCYTES PERCENT MAN 1 % (4-13); SEG NEUTROPHILS PERCENT MAN 63 % (41-73); TOTAL CELLS COUNTED 100
[2024-08-26] MEDS ORDERED: Insulin Regular 100 Unit/ML 1ML Dose IV ONE (15:40)
[2024-08-26] MEDS ORDERED: CALCIUM GLUC IN NACL, ISO-OSM 50 ML IV ONE (15:45)
--- NOTE | 2024-08-26 15:53 | NUR ---
Pt's family is gathered at bedside, both local family of ex- and 2 sons along with son and DIL her from [place]. They report after speaking with the phsyician, they are prepared to de-escalate care, request we perform terminal withdrawal and liberate the patient. Dr. Cook gave order for comfort care/terminal withdrawal.
[2024-08-26] MEDS ORDERED: LORazepam 1 MG Tab PO PRN (16:10)
[2024-08-26] MEDS ORDERED: LORazepam 2 MG/ML 1ML Injection IV PRN (16:10)
[2024-08-26] MEDS ORDERED: Morphine Sulfate 20 MG/1ML 1 ML Oral Syringe SL PRN (16:10)
[2024-08-26] MEDS ORDERED: Scopolamine Hydrobromide Patch TOP PRN (16:10)
[2024-08-26] MEDS ORDERED: Morphine Sulfate 10 MG/ML 1MLSYR IV PRN (16:10)
[2024-08-26] MEDS ORDERED: Atropine Sulfate 1% Opth Soln 2ML BTL SL PRN (16:10)
[2024-08-26] MEDS ORDERED: Ondansetron HCl 2 MG / ML 2ML Vial IV PRN (16:10)
--- NOTE | 2024-08-26 16:52 | NUR ---
SHIFT SUMMARY PT INTUBATED AND SEDATED ON PROPOFOL 20MCG/KG/MIN. PRN FENTANYL ADMINISTERED FOR PAIN/ADJUVENT. LUNGS CLEAR/DIM. CARDIAC: HYPOTENSIIVE ON NEOSYNEPHRINE, LEVOPHED AND VASOPRESSIN. MEDICATION DOSAGE DEMAND INCREASED THROUGH OUT THE DAY. SINUS TACH HR 100S. ABDOMEN IS DISTENDED AND TENDER. MOTTLING PRESENT TO R SIDE OF ABDOMEN. MANY FAMILY MEMEBERS PRESENT THIS AFTERNOON. GOALS OF CARE CONVERSATION WITH HOSPICE AND DR HAUSER. FAMILY ELECTED FOR COMFORT CARE. SEDATION TURNED OFF AND PT PREMEDICATED EXTUBATED AT 1630. GTT'S STOPPED AFTER EXTUBATION. FAMILY AT BEDSIDE. PT PASSED PEACEFULLY SURROUNDED BY HIS FAMILY. MINIMAL AGONAL BREATHING, PT WITHOUT HEARTBEAT WITH NO RESPIRATIONS AT 1644.
[2024-08-26] MEDS ORDERED: [UNRECOGNIZED DRUG - OTHER] IV SCH (17:00)
[2024-08-26] MEDS ORDERED: Insulin Human Lispro 100 Units/ML 3ML Syringe SC SCH (18:00)
[2024-08-27] MEDS ORDERED: [UNRECOGNIZED DRUG - OTHER] IV SCH (17:00)
== END 2024-08-26 17:58 | DRG 871 ==
LOC: ER 06:25 → ICUE 09:37 → ERHOLD 09:37 → ICUE 11:01
PROVIDERS: Emergency Medicine; Family Medicine; Internal Medicine; Internal Medicine Critical Care Medicine; Student in an Organized Health Care Education/Training Program; ADMIT Internal Medicine
PROC: 5A09357 Assistance with Respiratory Ventilation, Less than 24 Consecutive Hours, Continuous Positive Airway Pressure (ICD-10-PCS; 2024-08-24)
PROC: 06HY33Z Insertion of Infusion Device into Lower Vein, Percutaneous Approach (ICD-10-PCS; 2024-08-24)
PROC: 3E043XZ Introduction of Vasopressor into Central Vein, Percutaneous Approach (ICD-10-PCS; 2024-08-24)
PROC: 4A133R1 Monitoring of Arterial Saturation, Peripheral, Percutaneous Approach (ICD-10-PCS; 2024-08-24)
PROC: 3E03329 Introduction of Other Anti-infective into Peripheral Vein, Percutaneous Approach (ICD-10-PCS; 2024-08-24)
PROC: 0T9B70Z Drainage of Bladder with Drainage Device, Via Natural or Artificial Opening (ICD-10-PCS; 2024-08-24)
PROC: 5A1945Z Respiratory Ventilation, 24-96 Consecutive Hours (ICD-10-PCS; principal; 2024-08-25)
PROC: 0BH17EZ Insertion of Endotracheal Airway into Trachea, Via Natural or Artificial Opening (ICD-10-PCS; 2024-08-25)
PROC: 04HY32Z Insertion of Monitoring Device into Lower Artery, Percutaneous Approach (ICD-10-PCS; 2024-08-25)
PROC: 4A133B1 Monitoring of Arterial Pressure, Peripheral, Percutaneous Approach (ICD-10-PCS; 2024-08-25)
PROC: 4A133J1 Monitoring of Arterial Pulse, Peripheral, Percutaneous Approach (ICD-10-PCS; 2024-08-25)
PROC: 3E0436Z Introduction of Nutritional Substance into Central Vein, Percutaneous Approach (ICD-10-PCS; 2024-08-25)
PROC: 30233J1 Transfusion of Nonautologous Serum Albumin into Peripheral Vein, Percutaneous Approach (ICD-10-PCS; 2024-08-25)
DX: A41.9 Sepsis, unspecified organism (principal); G92.8 Other toxic encephalopathy; J18.9 Pneumonia, unspecified organism; J69.0 Pneumonitis due to inhalation of food and vomit; R65.21 Severe sepsis with septic shock; J96.21 Acute and chronic respiratory failure with hypoxia; G93.41 Metabolic encephalopathy; Z51.5 Encounter for palliative care; Z66 Do not resuscitate; T83.510A Infection and inflammatory reaction due to cystostomy catheter, initial encounter; A09 Infectious gastroenteritis and colitis, unspecified; N39.0 Urinary tract infection, site not specified; N17.9 Acute kidney failure, unspecified; E87.20 Acidosis, unspecified; E87.1 Hypo-osmolality and hyponatremia; Y73.2 Prosthetic and other implants, materials and accessory gastroenterology and urology devices associated with adverse incidents; J44.9 Chronic obstructive pulmonary disease, unspecified; E16.2 Hypoglycemia, unspecified; K21.9 Gastro-esophageal reflux disease without esophagitis; N40.1 Benign prostatic hyperplasia with lower urinary tract symptoms; R33.8 Other retention of urine; D69.6 Thrombocytopenia, unspecified; E83.51 Hypocalcemia; I10 Essential (primary) hypertension; G40.909 Epilepsy, unspecified, not intractable, without status epilepticus; E86.9 Volume depletion, unspecified; R73.9 Hyperglycemia, unspecified; Z99.81 Dependence on supplemental oxygen; Z91.040 Latex allergy status; Z79.890 Hormone replacement therapy; Z79.52 Long term (current) use of systemic steroids; Z87.891 Personal history of nicotine dependence; Z78.1 Physical restraint status
CPT/HCPCS: 31500; 36415; 36556; 36600; 36620; 71045; 74018; 74176; 74177; 80048; 80053; 80202; 81001; 82330; 82803; 82947; 83605; 83735; 84100; 84478; 84484; 85025; 85384; 85610; 85730; 87086; 93005; 93010; 93306; 94002; 94003; 94640; 94660; 94664; 94762; 96365-59; 96375-59; 99285-25; A9270; C1751; J0330; J0696; J1165; J2060; J2250; J2270; J2371; J2470; J2543; J2704; J3010; J3370; J7030; J7040; J7050; J7060; J7070; J7120; J7799; P9045; Q9967